=== PATIENT | male | born 2000 | race Caucasian/White ===

== ENCOUNTER 2023-12-01 09:06 | Emergency (ER) | payer BC, SELFPAY ==
[2023-12-01 09:14] VITALS: BP 137/93
--- NOTE | 2023-12-01 10:22 | ED.GENMED ---
History of Present Illness
General
Chief Complaint: Fever
Source: patient
Exam Limitations: none
Time Seen by Provider: 12/01/23 09:28
Nursing documentation reviewed up to this point in time: agreed with
Travel History
Have you had any contact with someone who has COVID-19?: No
Do you have any symptoms of coronavirus? Fever > 100 degrees, chills, cough, shortness of breath, sore throat, loss of taste or smell, muscle aches, or headache?: Yes
Symptoms:: fever
History of Present Illness
History of Present Illness:
The patient is a healthy 23-year-old man who comes in with complaints of chills and fatigue that started last night. Patient reports he checked his temperature this morning and was 101. He reports he took Advil and shortly after, vomited. Patient
reports that he then felt better but then unfortunately vomited again twice. Patient denies diarrhea. He denies all abdominal pain. He reports a mild dry cough for about a week. He denies sore throat, headache and rash. Patient reports he has
had intermittent neck pain which is now much better from the Advil. Patient denies sick contacts. Patient denies diarrhea and constipation. He denies current nausea.
Past History
Past History
ED Past Medical History: None
ED Past Surgical History: None
Social History
Tobacco: Non-smoker
Alcohol: Other
Drug: None
Personal: Single
Living: with family
Employment: Other
Family History
Family History: Other
Review of Systems
Review of Systems
Allergies reviewed?: Yes
All Other Systems: ROS reviewed and negative except as documented in HPI and ROS
Constitutional: Reports fever, fatigue and chills
EENT: Reports no symptoms
Respiratory: Reports cough
Cardiac: Reports no symptoms
ABD/GI: Reports nausea and vomiting
: Reports no symptoms
Musculoskeletal: Reports no symptoms
Skin: Reports no symptoms
Neurological: Reports no symptoms
Endocrine: Reports no symptoms
Hematologic/Lymphatic: Reports no symptoms
Psychiatric: Reports no symptoms
Phy Exam
Physical Exam
Physical Exam:
Physical Exam
General: no apparent distress, not acutely ill. Well and nontoxic-appearing. Smiling and conversational
Neck: supple. no meningeal signs. normal psoterior pharynx. No meningismus. No pharyngeal erythema or exudate
Heart: s1/s2 regular rate and rhythm, no murmur. equal radial pulses.
Lungs: no acute respiratory distress. clear bilaterally
Abdomen: normal bowel sounds. not tender. no CVAT. Soft and nontender throughout
Neuro: alert and oriented. no focal neurological deficits. 5 out of 5 strength in all extremities
Skin: no rash
Psychiatric: well kept. interactive and cooperative
Extremities: no edema. no calf tenderness. negative homans. good distal pulses
Course
Orders/Labs/Results
Orders:
Orders
12/01/23 10:43
COVID-19 Antigen Urgent
Source: Nasal Swab
Influenza A+B Rapid Molecular Urgent
[facility] Source: Nasal Swab
Specimen Description:
Vital Signs
Initial and Last Documented VS:
Initial Vital Signs
Temp Pulse Resp BP Pulse Ox
99.1 F 91 20 137/93 97
12/01/23 09:14 12/01/23 09:14 12/01/23 09:14 12/01/23 09:14 12/01/23 09:14
Last Documented Vital Signs
Temp Pulse Resp BP Pulse Ox
99.1 F 83 16 119/65 99
12/01/23 09:14 12/01/23 11:28 12/01/23 11:28 12/01/23 11:28 12/01/23 11:28
MDM/Problems Addressed
Differential Diagnosis Includes:
Acute viral illness, pneumonia, UTI, meningitis
MDM/Problems Addressed:
Patient presents with acute fever and subacute neck pain. Patient presents with acute vomiting
*Pulse Oximetry
Patient hypoxic: no
*EKG
Interpreted by ED Provider?: NA
*It Software Engineer Interpretation
Rate: It Software Engineer- N/A
*Critical Care Note
Total Time (30-74mins, 75-104mins- exclusive of procedures): Not Applicable
Data Reviewed
Source: patient and family
Patient Management
Social determinants of health affecting care: Living situation and Strong social support
Escalation/DeEscalation of care consider admission/obs:
Patient looks extremely well and comfortable. His lungs are completely clear and he has no tachypnea. I have not seen him cough. Therefore, it is unlikely he has pneumonia. There is no sign of pharyngitis. His abdomen is soft and nontender so
there is no clinical sign of acute appendicitis. Patient likely has viral illness. Patient encouraged to follow-up with his doctor in about 2 to 3 days for recheck.
ED Attending Note
-
Portions of this chart may have been created with voice recognition software.� Occasional wrong word or��sound alike� substitutions may have occurred due to the inherent limitations of voice recognition software.
Discharge Plan
Departure
Patient Disposition: Home (Routine Discharge)
Date of Disposition: 12/01/23
Time of Disposition: 11:14
Patient with high blood pressure during this ER visit?: Yes
Condition: Good
Covid-19: Negative COVID-19
Discharge Problem:
Acute febrile illness, Acute vomiting
Instructions: [place] Diet, Fever, Adult ED, BLOOD PRESSURE, Acute Nausea and Vomiting
Prescriptions:
New
ondansetron 4 mg tablet,disintegrating
4 mg PO Q6H PRN (Reason: nausea and vomiting) Qty: 14 0RF
Referrals:
Bubba Gilbert III DO [Family Provider] -
Activity Restrictions/Additional Instructions:
Take 1,000 mg of Tylenol every 4-6 hours for any fever. Return with any significant abdominal pain. Please follow-up with your doctor in 2 to 3 days. Your COVID and flu test both came back negative. You likely have a viral illness. You can also
take 600 mg of Advil with food every 6-8 hours for fever and/or neck pain.
Interventions
Interventions:
*Risk Screen - Suicide Last Done: 12/01/23 09:18
*General Assessment Last Done: 12/01/23 09:18
*Neglect/Abuse Screening Last Done: 12/01/23 09:18
ED- Fall Risk Assessment Last Done: 12/01/23 11:35
*ED COVID-19 Vaccine History Last Done: 12/01/23 11:35
*Nursing Disposition Last Done: 12/01/23 11:35
ED-Musculoskeletal Assessment Last Done: 12/01/23 10:52
ED- Neurological Assessment Last Done: 12/01/23 10:52
ED-Skin Assessment Last Done: 12/01/23 10:52
Discharge Date and Time
Discharge Date/Time: 12/01/23 11:41
Print Language: UKRA[place]
[2023-12-01 11:05] LABS: COVID-19 Antigen Negative (Negative)
[2023-12-01 11:28] VITALS: BP 119/65
== END 2023-12-01 11:41 | disposition home or self-care (01) ==
LOC: EMR 09:06
PROVIDERS: EMERGENCY PHYSICIAN Emergency Medicine; FAMILY PHYSICIAN Student in an Organized Health Care Education/Training Program
DX: R50.9 Fever, unspecified (principal); R11.2 Nausea with vomiting, unspecified; R53.83 Other fatigue; R05.9 Cough, unspecified; M54.2 Cervicalgia; R03.0 Elevated blood-pressure reading, without diagnosis of hypertension; Z11.52 Encounter for screening for COVID-19
CPT/HCPCS: 99283; 87502; 87811